=== PATIENT | male | born 1995 | race Caucasian/White ===

== ENCOUNTER 2021-06-08 02:21 | Emergency (ER) | payer BC, OTHER ==
[~2021-06-08] VITALS: Ht 172.7 cm; Wt 106.8 kg
--- NOTE | 2021-06-08 03:40 | PHYS DOC ---
Past History Past Medical History: Anxiety, Hypothyroid (WIL CHAVARRIA MD) Smoking: Cigarettes Alcohol Use: Occasionally Drug Use: Marijuana (Vapes) (WIL CHAVARRIA MD) General Adult EDM: Chief Complaint: ANXIETY/PANIC ATTACK HPI: HPI: ".. I just having a lot of anxiety... stress.. maybe panic attack.. it just I feel so short of breath.. this been going on for a while.. I ve been seeing Dr. Ortega.. I ve been on albuterol.. and steroid inhaler but that has not helped.. and the pills he gave to for my anxiety has not helped.. It is make me feel groggy...".." I don't seem to be able to concentrate.. sometimes.. I could not remember stuff.." Patient is a 26 year old male who presents with anxiety and panic attack. Pt. boyfriend of 3 years advised he seems at baseline mentally, but has seemed more short of breath. Patient has had previous episodes of reactive airway. Patient has been treated with albuterol and steroid inhalers but reports minimal improvement. Patient denies any IV drug use. Does smoke marijuana daily. Patient gave up vaping 3 months ago. Patient did have Covid in October of last year. Has not had COVID vaccination. No history of previous DVTs or pulmonary embolisms. No family history of pulmonary embolism or DVTs. Patient denies any previous cardiac disorder. Does have a history of hypothyroidism in the past as a child. Has not been taking thyroid meds for a number of years. Patient denies any history immunosuppression. No recent travel. No significant ill contacts. No history of sleep apnea. (WIL CHAVARRIA MD) Review of Systems: Review of Systems: Constitutional: Denies fever or chills Eyes: Denies change in visual acuity HENT: Denies nasal congestion or sore throat Respiratory: Complains of shortness of breath Cardiovascular: Complains of chest discomfort GI: Denies abdominal pain, nausea, vomiting, bloody stools or diarrhea : Denies dysuria Musculoskeletal: Denies back pain or joint pain Integument: Denies rash Neurologic: Denies headache, focal weakness or sensory changes Endocrine: Denies polyuria or polydipsia Lymphatic: Denies swollen glands Psychiatric: Denies depression or anxiety (WIL CHAVARRIA MD) Family History: Family History: Noncontributory to presentation (WIL CHAVARRIA MD) Current Medications: Current Meds: See nursing for home meds (WIL CHAVARRIA MD) Allergies: Allergies: Allergies Coded Allergies Type Severity Reaction Last Updated Verified No Known Drug Allergies 06/08/21 No (WIL CHAVARRIA MD) Physical Exam: PE: Constitutional: Well developed, well nourished, no acute distress, non-toxic appearance. [] HENT: Normocephalic, atraumatic, bilateral external ears normal, oropharynx moist, no oral exudates, nose slightly injected turbinates with clear rhinorrhea. Eyes: PERRLA, EOMI, conjunctiva normal, no discharge. [] Neck: Normal range of motion, no tenderness, supple, no stridor. [] Cardiovascular:Heart rate regular rhythm, no murmur [] Lungs & Thorax: Bilateral breath sounds equal apex with few scattered wheezes on auscultation [] Abdomen: Bowel sounds normal, soft, no tenderness, no masses, no pulsatile masses. [] Skin: Warm, dry, no erythema, no rash. [] Back: No tenderness, no CVA tenderness. [] Extremities: No tenderness, no cyanosis, no clubbing, ROM intact, no edema. No cording appreciated Neurologic: Alert and oriented X 3, normal motor function, normal sensory function, no focal deficits noted. DTRs +2 patella and brachial. Ambulatory without problems. Psychologic: Affect very anxious, judgement normal, mood normal. [] (WIL CHAVARRIA MD) EKG: EKG: My interpretation EKG shows a sinus rhythm at 89 bpm. No acute morphology. Time of EKG shows at 401 hours [] (WIL CHAVARRIA MD) Radiology/Procedures: Radiology/Procedures: [][address] [place] [id number] IMAGING REPORT Signed PATIENT: ADI EDMONDS RACCOUNT: [id number] : 1995 LOCATION: ER AGE: 26 SEX: M EXAM STATUS: REG ER ORD. PHYSICIAN: WIL CHAVARRIA MD REASON: sob PROCEDURE: CHEST PA & LATERAL Two-view chest dated 06/08/2021 4:29 AM Comparison: None CLINICAL INDICATION: Shortness of breath FINDINGS: PA and lateral views obtained. Heart and mediastinal contours within normal limits. Lungs are clear. No consolidation or pleural effusion. No pneumothorax. IMPRESSION: No acute radiographic abnormality. Electronically signed by: Sp Vila MD (06/08/2021 4:30 AM) [facility] [place]ATED AND SIGNED BY: SP VILA MD DATE: 06/08/21 0429 CC: WIL CHAVARRIA MD; LYNN ORTEGA MD ~MTH0 0 (WIL CHAVARRIA MD) Radiology/Procedures: IMAGING REPORT Signed PATIENT: ADI EDMONDS RACCOUNT: [id number] : 1995 LOCATION: ER AGE: 26 SEX: M EXAM STATUS: REG ER ORD. PHYSICIAN: MAC CASTELLON DO REASON: soa, r/o pe - 100mls omni 350 PROCEDURE: CT ANGIOGRAPHY CHEST EXAM: CT ANGIOGRAPHY OF THE CHEST WITH AND WITHOUT CONTRAST. HISTORY: Shortness of breath. TECHNIQUE: Computed tomographic angiography of the chest was performed before and after the intravenous administration of iodinated contrast. 3-D maximum intensity projections were also performed. One or more of the following individualized dose reduction techniques were utilized for this examination: 1. Automated exposure control. 2. Adjustment of the mA and/or kV according to patient size. 3. Use of iterative reconstruction technique. COMPARISON: None. FINDINGS: Images of the upper abdomen reveal no acute abnormality. Bone windows reveal no suspicious lesions. Opacification of the pulmonary arterial tree is limited. This lowers sensitivity for small peripheral pulmonary emboli. None are seen. There is no aortic dissection or aneurysm. There are no pathologically enlarged mediastinal or axillary lymph nodes. Soft tissue density in the anterior mediastinal fat most likely reflects a thymic remnant or rebound thymic hyperplasia. There is no pleural or pericardial effusion. The heart is not enlarged. A 2 mm nodule in the right lower lobe on image 81 is likely benign and requires no further follow-up in this demographic. There are no infiltrates. IMPRESSION: 1. Limited opacification of the pulmonary arterial tree lower sensitivity for small peripheral pulmonary emboli. None are seen. Electronically signed by: Rose Marie Maier MD (06/08/2021 8:29 AM) [id number] DICTATED AND SIGNED BY: AAMIR MAIER MD DATE: 06/08/21824 CC: LYNN ORTEGA MD; RAVINDERMAC Joens DO ~MTH0 0 (MAC CASTELLON DO) Heart Score: C/O Chest Pain: No HEART Score for Chest Pain: HEART Score for Chest Pain Response (Comments) Value History Slighlty/Non-Suspicious 0 ECG Normal 0 Age < 45 0 Risk Factors 1 or 2 Risk Factors 1 Troponin < Normal Limit 0 Total 1 Risk Factors: Risk Factors: DM, Current or recent (<one month) smoker, HTN, HLP, family history of CAD, obesity. Risk Scores: Score 0 - 3: 2.5% MACE over next 6 weeks - Discharge Home Score 4 - 6: 20.3% MACE over next 6 weeks - Admit for Clinical Observation Score 7 - 10: 72.7% MACE over next 6 weeks - Early Invasive Strategies (WIL CHAVARRIA MD) Course & Med Decision Making: Course & Med Decision Making Pertinent Labs and Imaging studies reviewed. (See chart for details) Patient endorsed to at shift change. She will make disposition. Labs p ending at shift change. Impression: 1. Anxiety and Panic Disorder 2. Chronic Marijuana use 3. Hx. of Hypothryoid 4. Mild Leukocytosis 16.7 [] (WIL CHAVARRIA MD) Course & Med Decision Making I reevaluated patient with his male partner at bedside, (patient consents to his/her/their knowledge and involvement in pts' medical care). Patient states "I have a lot going on," c/o shortness of breath and chest tightness for the past week. History of COVID last year, has not had his Covid vaccination. Is not a smoker with no underlying asthma. Patient states he lost his grandfather to cancer. Patient also reports he feels as if he has "cognitive problems," with difficulties concentrating. States "my heart rate keeps racing." HR in the 80's on monitor during my exam. Pt with clear lungs bilaterally. Denies SI/HI. I do suspect generalized anxiety. CTA chest w/no submassive PE or infiltrate. I have very low suspicion for Covid-patient declines testing/his partner is asymp tomatic. Will discharge home with strict ED return precautions were given for syncope, neurologic deficits, suicidal or homicidal ideations. Encouraged urgent outpatient follow-up with PMD and psychiatry for definitive management. Life- threatening processes were considered but are low suspicion at this time, given history, physical exam and ED workup. Pt was educated on all prescription medications and adverse effects. All patient's questions were answered and pt was stable at time of discharge. Life/limb-threatening differential includes but is not limited to, end organ damage/sepsis, trauma/abuse/neglect, neurologic deficit, alcohol/drug ingestion, toxidrome, suicidal/homicidal ideations plans or attempts, psychosis or mental illness resulting in self neglect and inability to care for self. I have spoken with the patient and/or caregivers. I explained the patient's condition, diagnoses and treatment plan based on the information available to me at this time. I have answered the patient and/or caregiver's questions and addressed any concerns. The patient and/or caregivers have a good understanding of patient's diagnosis, condition and treatment plan as can be expected at this point. Vital signs have been stable. Patient's condition is stable and [place] ropriate for discharge from the emergency department. Patient will pursue further outpatient evaluation with primary care physician or other designated or consulting physician as outlined in the discharge instructions. The patient and/or caregivers are agreeable to this plan of care and follow-up instructions have been explained in detail. The patient and/or caregivers have received these instructions in written form and have expressed an understanding of the discharge instructions. The patient and/or caregivers are aware that any significant change of condition or worsening of symptoms should prompt immediate return to this or the closest emergency department or call to 911. ([facility] DO) Juan Pablo Disclaimer: Dragon Disclaimer: This electronic medical record was generated, in whole or in part, using a voice recognition dictation system. (WIL CHAVARRIA MD) Departure Departure: Impression: Primary Impression: Anxiety Disposition: 01 HOME / SELF CARE / HOMELESS Condition: STABLE Referrals: LYNN ORTEGA MD (PCP) Follow up with your pcp in 1-[address] [facility] [phone] OR [facility]-Dr. Winter [phone] Patient Instructions: Anxiety and Panic Attacks, Palpitations Additional Instructions: FOLLOW UP WITH CARDIOLOGY: FOR DEFINITIVE MANAGEMENT of palpitations/chest pain [facility] Cardiology [address] [place] [address] OR [facility] Cardiology [address] [address] EMERGENCY DEPARTMENT GENERAL DISCHARGE INSTRUCTIONS Thank you for coming to [facility] (ED) today and trusting us with you care. We trust that you had a positivie experience in our Emergency Department. If you wish to speak to the department management, you may call the director at [phone]. YOUR FOLLOW UP INSTRUCTIONS ARE FOLLOWS: 1. Do you have a private Doctor? If you do not have a private doctor, please ask for a resource list of physicians or clinics that may be able to assist you with follow up care. 2. The Emergency Physician has interpreted your x-rays. The X-Ray specialist will also review them. If there is a change in the findings, you will be notified in 48 hours when at all possible. 3. A lab test or culture has been done, your results will be reviewed and you will be notified if you need a change in treatment. ADDITIONAL INSTRUCTIONS AND INFORMATION: 1. Your care today has been supervised by a physician who is specially trained in emergency care. Many problems require more than one evaluation for a complete diagnosis and treatment. We recommend that you schedule your follow up appointment as recommended to ensure complete treatment of you illness or injury. If you are unable to obtain follow up care and continue to have a problem, or if your condition worsens, we recommend that you return to the ED. 2. We are not able to safely determine your condition over the phone nor are we able to give sound medical advice over the phone. For these safety reasons, if you call for medical advice we will ask you to come to the ED for further evaluation. 3. If you have any questions regarding these discharge instructions please call the ED at [phone]. SAFETY INFORMATION: In the interest of safety, wellness, and injury prevention; we encourage you to wear your sealbelt, if you smoke; quite smoking, and we encourage family to use a pr otective helmet for bicycling and other sporting events that present an increased risk for head injury. IF YOUR SYMPTOMS WORSEN OR NEW SYMPTOMS DEVELOP, OR YOU HAVE CONCERNS ABOUT YOUR CONDITION; OR IF YOUR CONDITION WORSENS WHILE YOU ARE WAITING FOR YOUR FOLLOW UP APPOINTMENT; EITHER CONTACT YOUR PRIMARY CARE DOCTOR, THE PHYSICIAN WHOSE NAME AND NUMBER YOU WERE GIVEN, OR RETURN TO THE ED IMMEDIATELY. Scripts Hydroxyzine Hcl (HYDROXYZINE HCL) 25 Mg Tablet 1 TAB PO PRN BID PRN for ANXIETY / AGITATION, #20 TAB 0 Refills Be careful as this medication may make you mildly tired. I recommend not driving on this medication or operating heavy machinery. Prov: MAC CASTELLON DO 06/08/21 Dragon Disclaimer This chart was dictated in whole or in part using Voice Recognition software in a busy, high-work load, and often noisy Emergency Department environment. It may contain unintended and wholly unrecognized errors or omissions. (WIL CHAVARRIA MD) Dragon Disclaimer This chart was dictated in whole or in part using Voice Recognition software in a busy, high-work load, and often noisy Emergency Department environment. It may contain unintended and wholly unrecognized errors or omissions. (WIL CHAVARRIA MD) WIL CHAVARRIA MD Jun 08, 2021 03:40 MAC CASTELLON DO Jun 08, 2021 08:45
--- NOTE | 2021-06-08 04:19 | EKG ---
[address] [address] Test Date: 2021-06-08 Test Time: 04:01:44 Pat Name: ADI EDMONDS Department: Room: Gender: M Laboratory Manager: HOA : 1995 Requested By: WIL CHAVARRIA Order Number: [id number] Reading MD: Heriberto Cadena Measurements Intervals [place] Rate: 89 P: 54 VT: 120 QRS: 48 QRSD: 92 T: 21 QT: 334 QTc: 412 Interpretive Statements SINUS RHYTHM NORMAL ECG RI6.02 No previous ECG available for comparison Electronically Signed On 06-10-2021 16:53:31 CDT by Heriberto Cadena
--- NOTE | 2021-06-08 04:32 | RAD ---
Two-view chest dated 06/08/2021 4:29 AM Comparison: None CLINICAL INDICATION: Shortness of breath FINDINGS: PA and lateral views obtained. Heart and mediastinal contours within normal limits. Lungs are clear. No consolidation or pleural effusion. No pneumothorax. IMPRESSION: No acute radiographic abnormality. Electronically signed by: Sp Vila MD (06/08/2021 4:30 AM) [facility]
[2021-06-08] MEDS: IV RINGERS SOLUTION,LACTATED 1,000 ML IV SCH (05:50)
[2021-06-08 06:14] LABS: BASO % 0 % (0-3); EOS % 0 % (0-3); HEMATOCRIT 43.1 % (39.0-53.0); HEMOGLOBIN 14.6 g/dL (13.0-17.5); LYMPH # 3.1 x10^3/uL (1.0-4.8); LYMPH % 19 % (24-48); MEAN CORPUSCULAR HEMOGLOBIN 29 pg (25-35); MEAN CORPUSCULAR HGB CONC 34 g/dL (31-37); MEAN CORPUSCULAR VOLUME 86 fL (79-100); MONO # 0.9 x10^3/uL (0.0-1.1); MONO % 5 % (0-9); NEUT # 12.6 x10^3uL (1.8-7.7); NEUT % 76 % (31-73); PLATELET COUNT 302 x10^3/uL (140-400); RED BLOOD COUNT 5.02 x10^6/uL (4.30-5.70); RED CELL DISTRIBUTION WIDTH 13.3 % (11.5-14.5); WHITE BLOOD COUNT 16.7 x10^3/uL (4.0-11.0)
[2021-06-08 06:18] LABS: BARBITURATES NEG (NEG); BENZODIAZEPINES NEG (NEG); CANNABINOIDS POS (NEG); COCAINE NEG (NEG); METHADONE NEG (NEG); OPIATES NEG (NEG); PHENCYCLIDINE NEG (NEG)
[2021-06-08 06:21] LABS: AMPHETAMINE/METHAMPHETAMINE NEG (NEG); BACTERIA,URINE 0 /HPF (0-FEW); BILIRUBIN,URINE NEG (NEG); CLARITY,URINE CLEAR; COLOR,URINE YELLOW; GLUCOSE,URINE NEG (NEG); NITRITE,URINE NEG (NEG); RBC,URINE 0 /HPF (0-2); SQUAMOUS EPITHELIAL CELL,UR FEW /LPF; WBC,URINE RARE /HPF (0-4)
[2021-06-08 06:27] LABS: CALCIUM 9.4 mg/dL (8.5-10.1); CREATININE 0.8 mg/dL (0.7-1.3); GFR 117.8; POTASSIUM 3.6 mmol/L (3.5-5.1)
[2021-06-08 06:40] LABS: ALBUMIN 4.2 g/dL (3.4-5.0); DIRECT BILIRUBIN 0.1 mg/dL (0.0-0.2); TOTAL BILIRUBIN 0.4 mg/dL (0.2-1.0); TOTAL PROTEIN 8.5 g/dL (6.4-8.2)
[2021-06-08 07:33] LABS: % LYMPHS 27 % (24-48); % MONOS 3 % (0-10); % SEGS 70 % (35-66); PLT ESTIMATE ADEQUATE (ADEQUATE)
[2021-06-08] MEDS: IOHEXOL 350 MG/ML 100 ML VIAL. IV ONE (08:13)
--- NOTE | 2021-06-08 08:32 | RAD ---
EXAM: CT ANGIOGRAPHY OF THE CHEST WITH AND WITHOUT CONTRAST. HISTORY: Shortness of breath. TECHNIQUE: Computed tomographic angiography of the chest was performed before and after the intraveno us administration of iodinated contrast. 3-D maximum intensity projections were also performed. One o r more of the following individualized dose reduction techniques were utilized for this examination: 1. Automated exposure control. 2. Adjustment of the mA and/or kV according to patient size. 3. Use of iterative reconstruction technique. COMPARISON: None. FINDINGS: Images of the upper abdomen reveal no acute abnormality. Bone windows reveal no suspicious lesions. Opacification of the pulmonary arterial tree is limited. This lowers sensitivity for small peripheral pulmonary emboli. None are seen. There is no aortic dissection or aneurysm. There are no pathologically enlarged mediastinal or axillary lymph nodes. Soft tissue density in the anterior mediastinal fat most likely reflects a thymic remnant or rebound thymic hyperplasia. There i s no pleural or pericardial effusion. The heart is not enlarged. A 2 mm nodule in the right lower lobe on image 81 is likely benign and requires no further follow-up in this demographic. There are no infiltrates. IMPRESSION: 1. Limited opacification of the pulmonary arterial tree lower sensitivity for small peripheral pulmon demetria emboli. None are seen. Electronically signed by: Rose Marie Maier MD (06/08/2021 8:29 AM) [id number]
[2021-06-08] MEDS ORDERED: HYDR25TA PO (09:03)
[2021-06-08 09:31] VITALS: BP 127/76
== END 2021-06-08 09:31 | disposition home or self-care (01) ==
LOC: ER 02:21
DX: F41.9 Anxiety disorder, unspecified (principal); F17.210 Nicotine dependence, cigarettes, uncomplicated; F12.10 Cannabis abuse, uncomplicated
CPT/HCPCS: 36415; 71046; 71275; 80048; 80076; 80307; 81001; 82550; 83880; 84443; 84484; 85007; 85025; 85379; 85610; 85730; 93005; 96360; 99285; J7120; Q9967

== ENCOUNTER 2021-06-13 17:50 | Emergency (ER) | payer BC ==
[~2021-06-13] VITALS: Ht 172.7 cm; Wt 108.7 kg
[~2021-06-13 17:50] MED LIST: HYDR25TA PO
[2021-06-13 17:59] VITALS: BP 143/86
--- NOTE | 2021-06-13 18:08 | EKG ---
[address] [address] Test Date: 2021-06-13 Test Time: 17:53:31 Pat Name: ADI EDMONDS Department: Room: Gender: M Electrical Products Engineer: TUNDE : 1995 Requested By: LEIGHA BELCHER Order Number: [id number] Reading MD: Darius Hernandez Measurements Intervals [place] Rate: 130 P: 51 TN: 124 QRS: 27 QRSD: 88 T: 12 QT: 294 QTc: 439 Interpretive Statements SINUS TACHYCARDIA Electronically Signed On 06-14-2021 15:59:48 CDT by Darius Hernandez
--- NOTE | 2021-06-13 19:02 | RAD ---
AP chest. HISTORY: Chest pain AP view of the chest was compared with a study from June 08. Heart is normal in size. There is no p leural effusion. There are no acute infiltrates. IMPRESSION: 1. No acute chest disease. Electronically signed by: Jonathan Ibarra MD (06/13/2021 6:59 PM) [facility]
[2021-06-13 19:10] LABS: BASO % 0 % (0-3); EOS # 0.1 x10^3/uL (0.0-0.7); EOS % 1 % (0-3); HEMATOCRIT 39.8 % (39.0-53.0); HEMOGLOBIN 13.6 g/dL (13.0-17.5); LYMPH # 2.7 x10^3/uL (1.0-4.8); LYMPH % 24 % (24-48); MEAN CORPUSCULAR HEMOGLOBIN 30 pg (25-35); MEAN CORPUSCULAR HGB CONC 34 g/dL (31-37); MEAN CORPUSCULAR VOLUME 86 fL (79-100); MONO # 0.5 x10^3/uL (0.0-1.1); MONO % 5 % (0-9); NEUT # 7.9 x10^3uL (1.8-7.7); NEUT % 70 % (31-73); PLATELET COUNT 285 x10^3/uL (140-400); RED BLOOD COUNT 4.61 x10^6/uL (4.30-5.70); RED CELL DISTRIBUTION WIDTH 13.3 % (11.5-14.5); WHITE BLOOD COUNT 11.2 x10^3/uL (4.0-11.0)
[2021-06-13 19:20] LABS: ANION GAP 6 (6-14); BLOOD UREA NITROGEN 9 mg/dL (8-26); BUN/CREATININE RATIO 11 (6-20); CALCIUM 8.8 mg/dL (8.5-10.1); CARBON DIOXIDE 30 mmol/L (21-32); CHLORIDE 102 mmol/L (98-107); CREATININE 0.8 mg/dL (0.7-1.3); GFR 117.8; GLUCOSE 128 mg/dL (70-99); POTASSIUM 3.7 mmol/L (3.5-5.1); SODIUM 138 mmol/L (136-145)
[2021-06-13 19:35] LABS: ALK PHOS 100 U/L (46-116); ALT (SGPT) 52 U/L (16-63); AST (SGOT) 21 U/L (15-37); TOTAL BILIRUBIN 0.3 mg/dL (0.2-1.0); TOTAL PROTEIN 7.9 g/dL (6.4-8.2)
--- NOTE | 2021-06-13 20:05 | PHYS DOC ---
Past History Past Medical History: Anxiety, Hypothyroid Additional Past Medical Histor: svt, back injury (SHELIA CROOKS APRN) Past Surgical History: No Surgical History (SHELIA CROOKS APRN) Smoking: Cigarettes Alcohol Use: Occasionally Drug Use: Marijuana Social History Narrative: states he recently stopped using marijuana this past week (SHELIA CROOKS APRN) Adult General Chief Complaint Chief Complaint: OTHER COMPLAINTS HPI HPI Patient is a 26-year-old male presents emergency department complaining of the sudden onset of heart palpitations at approximately 1700 today, patient states he has a history of anxiety and feels he may be having an anxiety attack. Patient denies diaphoretic episode, shortness of breath, states he does have generalized chest pain all over without radiation, reports he is feeling better since arriving to the emergency department. Patient denies other physical complaints or physical concerns. (SHELIA CROOKS APRN) Review of Systems Review of Systems 14 body systems of review of systems have been reviewed. See HPI for pertinent positives and negative responses, otherwise all other systems are negative, nonpertinent or noncontributory. Constitutional: Negative except as outlined in HPI above. Skin: Negative except as outlined in HPI above. Eyes: Negative except as outlined in HPI above. HENT: Negative except as outlined in HPI above. Respiratory: Negative except as outlined in HPI above. Cardiovascular: Negative except as outlined in HPI above. GI: Negative except as outlined in HPI above. : Negative except as outlined in HPI above. Musculoskeletal: Negative except as outlined in HPI above. Integument: Negative except as outlined in HPI above. Neurologic: Negative except as outlined in HPI above. Endocrine: Negative except as outlined in HPI above. Lymphatic: Negative except as outlined in HPI above. Psychiatric: Negative except as outlined in HPI above. (SHELIA CROOKS APRN) Current Medications Current Medications Current Medications Medications (Trade) Dose Ordered Sig/Gina Start Time Stop Time Status Last Admin Dose Admin Lorazepam (Ativan Inj) 2 mg 1X ONCE 06/13/21 19:15 06/13/21 19:16 DC 06/13/21 19:08 2 MG (SHELIA CROOKS APRN) Allergies Allergies Allergies Coded Allergies Type Severity Reaction Last Updated Verified No Known Drug Allergies 06/13/21 No (SHELIA CROOKS APRN) Physical Exam Physical Exam Constitutional: Well developed, well nourished, no acute distress, non-toxic appearance. [] HENT: Normocephalic, atraumatic, bilateral external ears normal, oropharynx mois t, no oral exudates, nose normal. [] Eyes: PERRLA, EOMI, conjunctiva normal, no discharge. [] Neck: Normal range of motion, no tenderness, supple, no stridor. [] Cardiovascular:Heart rate regular rhythm, no murmur [] Lungs & Thorax: Bilateral breath sounds clear to auscultation [] Abdomen: Bowel sounds normal, soft, no tenderness, no masses, no pulsatile masses. [] Skin: Warm, dry, no erythema, no rash. [] Back: No tenderness, no CVA tenderness. [] Extremities: No tenderness, no cyanosis, no clubbing, ROM intact, no edema. [] Neurologic: Alert and oriented X 3, normal motor function, normal sensory function, no focal deficits noted. [] Psychologic: Affect normal, judgement normal, mood normal. [] (SHELIA CROOKS APRN) Current Patient Data Vital Signs Vital Signs Date Time Temp Pulse Resp B/P (MAP) Pulse Ox O2 Delivery O2 Flow Rate FiO2 06/13/21 17:59 97.2 131 18 143/86 (105) 97 Room Air Lab Results Laboratory Tests Test 06/13/21 18:50 White Blood Count 11.2 x10^3/uL (4.0-11.0) H Red Blood Count 4.61 x10^6/uL (4.30-5.70) Hemoglobin 13.6 g/dL (13.0-17.5) Hematocrit 39.8 % (39.0-53.0) Mean Corpuscular Volume 86 fL (79-100) Mean Corpuscular Hemoglobin 30 pg (25-35) Mean Corpuscular Hemoglobin Concent 34 g/dL (31-37) Red Cell Distribution Width 13.3 % (11.5-14.5) Platelet Count 285 x10^3/uL (140-400) Neutrophils (%) (Auto) 70 % (31-73) Lymphocytes (%) (Auto) 24 % (24-48) Monocytes (%) (Auto) 5 % (0-9) Eosinophils (%) (Auto) 1 % (0-3) Basophils (%) (Auto) 0 % (0-3) Neutrophils # (Auto) 7.9 x10^3uL (1.8-7.7) H Lymphocytes # (Auto) 2.7 x10^3/uL (1.0-4.8) Monocytes # (Auto) 0.5 x10^3/uL (0.0-1.1) Eosinophils # (Auto) 0.1 x10^3/uL (0.0-0.7) Basophils # (Auto) 0.0 x10^3/uL (0.0-0.2) Sodium Level 138 mmol/L (136-145) Potassium Level 3.7 mmol/L (3.5-5.1) Chloride Level 102 mmol/L (98-107) Carbon Dioxide Level 30 mmol/L (21-32) Anion Gap 6 (6-14) Blood Urea Nitrogen 9 mg/dL (8-26) Creatinine 0.8 mg/dL (0.7-1.3) Estimated GFR (Cockcroft-Gault) 117.8 BUN/Creatinine Ratio 11 (6-20) Glucose Level 128 mg/dL (70-99) H Calcium Level 8.8 mg/dL (8.5-10.1) Total Bilirubin 0.3 mg/dL (0.2-1.0) Aspartate Amino Transferase (AST) 21 U/L (15-37) Alanine Aminotransferase (ALT) 52 U/L (16-63) Alkaline Phosphatase 100 U/L (46-116) Creatine Kinase 74 U/L (39-308) Creatine Kinase MB (Mass) < 0.5 ng/mL (0.0-3.6) Creatine Kinase MB Relative Index 0.7 % (0-4) Troponin I Quantitative < 0.017 ng/mL (0-0.055) Total Protein 7.9 g/dL (6.4-8.2) Albumin 4.0 g/dL (3.4-5.0) Albumin/Globulin Ratio 1.0 (1.0-1.7) (SHELIA CROOKS APRN) EKG EKG EKG performed at 1753 by ED nursing staff shows a sinus tachycardia without other ectopy, heart rate 130 bpm, [place] interval 0.124, QTc interval 0.439, no acute STEMI, no ACS, no acute ischemia appreciated, EKG interpreted by ED attending physician Dr. Ozuna. (SHELIA CROOKS APRN) Radiology/Procedures Radiology/Procedures PATIENT: ADI EDMONDSUNT: [id number] : 1995 LOCATION: ER AGE: 26 SEX: M EXAM STATUS: REG ER ORD. PHYSICIAN: SHELIA CROOKS APRN REASON: Chest pain PROCEDURE: CHEST AP ONLY AP chest. HISTORY: Chest pain AP view of the chest was compared with a study from June 08. Heart is normal in size. There is no pleural effusion. There are no acute infiltrates. IMPRESSION: 1. No acute chest disease. Electronically signed by: Jonathan Ibarra MD (06/13/2021 6:59 PM) [facility] (SHELIA CROOKS APRN) Heart Score C/O Chest Pain: Yes HEART Score for Chest Pain: HEART Score for Chest Pain Response (Comments) Value History Slighlty/Non-Suspicious 0 ECG Normal 0 Age < 45 0 Risk Factors 1 or 2 Risk Factors 1 Troponin < Normal Limit 0 Total 1 Risk Factors: Risk Factors: DM, Current or recent (<one month) smoker, HTN, HLP, family history of CAD, obesity. Risk Scores: Risk Factors: DM, Current or recent (<one month) smoker, HTN, HLP, family history of CAD, obesity. (SHELIA CROOKS APRN) Course & Med Decision Making Course & Med Decision Making Pertinent Labs and Imaging studies reviewed. (See chart for details) 26-year-old male, vital signs reviewed, presents to the emergency department concerning rapid heart rate with chest pain just prior to arrival. Patient does have a history of anxiety problems, will order a cardiorespiratory work-up along with IV Ativan. Patient's initial EKG heart rate 130, however during physical examination patient's heart rate was 90. No ectopy was noted during physical examination. Patient's cardiorespiratory work-up negative, EKG and cardiac enzymes nonconcerning. Chest x-ray nonconcerning, discussed findings with patient who does report all symptoms have resolved, discussed strict follow-up with primary care tomorrow to discuss ongoing heart palpitation problems, patient is amenable to ED discharge planning. Discussed with patient this is most likely an exacerbation of acute anxiety, the patient agrees with this. Discussed with the patient all findings and diagnostic testing as well as the need to follow-up with their primary care provider for further evaluation and treatment or return to the ED if any new or worsening symptoms. Strict return precautions were also discussed at length, the patient voiced understanding and agreement with the discharge planning. The patient was nontoxic in appearance, in no apparent distress, and hemodynamically stable at the time of disposition. (SHELIA CROOKS APRN) Course & Med Decision Making Did not see or evaluate patient. Did not discuss patient with [facility]. Agree with [facility] work-up and disposition per note. (LEIGHA BELCHER MD) Dragon Disclaimer Dragon Disclaimer This electronic medical record was generated, in whole or in part, using a voice recognition dictation system. (SHELIA CROOKS APRN) Departure Departure: Impression: Primary Impression: Anxiety attack Additional Impression: Heart palpitations Disposition: HOME / SELF CARE / HOMELESS Condition: GOOD Referrals: LYNN ORTEGA MD (PCP) Patient Instructions: Anxiety and Panic Attacks, Palpitations Additional Instructions: You were seen today in the emergency department for heart palpitations. An ext ensive cardiorespiratory work-up was performed today in the emergency department. As we discussed there were no concerning findings of your lab work or x-ray. You were given a anxiety medication through your IV that seemed to help your symptoms. Today's events are most likely an anxiety attack however as we discussed I cannot completely rule out a cardiac conductivity issue. You had disclosed that you were supposed to be taking a medication to control your heart rate however you have self discontinued this medication. As we discussed I strongly encourage you to follow-up with your primary care physician tomorrow to discuss this medication and possibly start again. Please return immediately to the emergency department for return of heart palpitations, chest pain, shortness of breath. Thank you for visiting our Emergency Department. It was a pleasure taking care of you today in the emergency department and we appreciate you trusting us with your care. If any additional problems come up don't hesitate to return to visit us. Please follow up with your primary care provider so they can plan additional care if needed and know about the problem that you had. If symptoms worsen come back to the Emergency Department. Any concerning symptoms that start such as chest pain, shortness of air, weakness or numbness on one side of the body, running high fevers or any other concerning symptoms return to the ER. EMERGENCY DEPARTMENT GENERAL DISCHARGE INSTRUCTIONS Thank you for coming to [facility] (ED) today and trusting us with you care. We trust that you had a positivie experience in our Emergency Department. If you wish to speak to the department management, you may call the director at [phone]. YOUR FOLLOW UP INSTRUCTIONS ARE FOLLOWS: 1. Do you have a private Doctor? If you do not have a private doctor, please ask for a resource list of physicians or clinics that may be able to assist you with follow up care. 2. The Emergency Physician has interpreted your x-rays. The X-Ray specialist will also review them. If there is a change in the findings, you will be notified in 48 hours when at all possible. 3. A lab test or culture has been done, your results will be reviewed and you will be notified if you need a change in treatment. ADDITIONAL INSTRUCTIONS AND INFORMATION: 1. Your care today has been supervised by a physician who is specially trained in emergency care. Many problems require more than one evaluation for a complete diagnosis and treatment. We recommend that you schedule your follow up appointment as recommended to ensure complete treatment of you illness or injury. If you are unable to obtain follow up care and continue to have a problem, or if your condition worsens, we recommend that you return to the ED. 2. We are not able to safely determine your condition over the phone nor are we able to give sound medical advice over the phone. For these safety reasons, if you call for medical advice we will ask you to come to the ED for further evaluation. 3. If you have any questions regarding these discharge instructions please call the ED at [phone]. SAFETY INFORMATION: In the interest of safety, wellness, and injury prevention; we encourage you to wear your sealbelt, if you smoke; quite smoking, and we encourage family to use a protective helmet for bicycling and other sporting events that present an increased risk for head injury. IF YOUR SYMPTOMS WORSEN OR NEW SYMPTOMS DEVELOP, OR YOU HAVE CONCERNS ABOUT YOUR CONDITION; OR IF YOUR CONDITION WORSENS WHILE YOU ARE WAITING FOR YOUR FOLLOW UP APPOINTMENT; EITHER CONTACT YOUR PRIMARY CARE DOCTOR, THE PHYSICIAN WHOSE NAME AND NUMBER YOU WERE GIVEN, OR RETURN TO THE ED IMMEDIATELY. Problem Qualifiers SHELIA CROOKS APRN Jun 13, 2021 20:05 LEIGHA BELCHER MD Jun 13, 2021 20:12
== END 2021-06-13 20:16 | disposition home or self-care (01) ==
LOC: ER 17:50
DX: F41.9 Anxiety disorder, unspecified (principal); R00.2 Palpitations; E03.9 Hypothyroidism, unspecified; F17.210 Nicotine dependence, cigarettes, uncomplicated
CPT/HCPCS: 36415; 71045; 80053; 82553; 84484; 85025; 93005; 96374; 99285; J2060